=== PATIENT | male | born 1970 | race Caucasian/White ===

== ENCOUNTER 2021-11-18 13:00 | Inpatient (IN) ==
[2021-11-18] MEDS ORDERED: *HR* HYDROmorphone (PF) 1 MG/ML SYRINGE IVP ONE (14:48)
[2021-11-18] MEDS ORDERED: 0.9 % Sodium Chloride 1,000 ML IVC ONE (14:48)
[2021-11-18 15:56] LABS: Basophils # 0.1 K/mcL (0.0-0.2); Basophils % 0.5 %; Eosinophils # 0.6 K/mcL (0.0-0.6); Eosinophils % 5.8 %; Hematocrit 26.2 % (37.5-50.1); Hemoglobin 8.1 g/dL (12.9-16.9); Immature Granulocytes % 2.3 % (0-4); Lymphocytes % 9.3 %; Mean Corpuscular HGB Conc 30.9 g/dL (31.6-35.5); Mean Corpuscular Hemoglobin 25.4 pg (28.0-33.3); Mean Corpuscular Volume 82.1 fL (83.0-100.0); Mean Platelet Volume 10.2 fL (9.4-12.4); Monocytes # 1.1 K/mcL (0.0-1.3); Neutrophils # 7.5 K/mcL (1.6-8.9); Platelet Count 500 K/mcL (140-400); Red Blood Count 3.19 M/mcL (4.19-5.50); Red Cell Distribution Width 13.6 % (11.5-14.5); Segmented Neutrophils % 72.1 %; White Blood Count 10.5 K/mcL (4.3-11.1)
[2021-11-18 16:05] LABS: INR 1.2; Prothrombin Time 13.2 Seconds (9.4-12.1)
[2021-11-18 16:07] LABS: Activated Partial Thrombo Time 32.1 Seconds (26.0-36.0)
[2021-11-18 16:18] LABS: Albumin 3.1 g/dL (3.5-5.7); Albumin/Globulin Ratio 0.8 (1.1-2.2); Bilirubin,Total 0.3 mg/dL (0.3-1.0); Calcium 8.9 mg/dL (8.6-10.3); Globulin 3.8 g/dL (2.4-3.5); Total Protein 6.9 g/dL (6.4-8.9)
[2021-11-18] MEDS ORDERED: Ondansetron 4 MG/2 ML VIAL IVP PRN (17:04)
[2021-11-18] MEDS ORDERED: Acetaminophen 325 MG TABLET PO PRN (17:04)
[2021-11-18] MEDS ORDERED: *HR* HYDROcodone/Acet 5/325 mg TABLET PO PRN (17:04)
[2021-11-18] MEDS ORDERED: Naloxone 0.4 MG/ML INJ IVP PRN (17:04)
[2021-11-18] MEDS ORDERED: *HR* OxyCODONE Immed Rel 5 MG TABLET PO PRN (17:04)
[2021-11-18] MEDS ORDERED: D5% in Water 1,000 ML IVC PRN (17:21)
[2021-11-18] MEDS ORDERED: *HR* Dextrose 50 % in Water (Syg) 50 ML SYRINGE IVP PRN (17:21)
[2021-11-18] MEDS ORDERED: Dextrose Gel 15 GM/37.5 ML TUBE PO PRN ×2 (17:21)
[2021-11-18] MEDS: 0.9 % Sodium Chloride 1,000 ML IVC SCH (17:51)
[2021-11-18 18:43] LABS: Adenovirus Not Detected (Not Detect); Bordetella Pertussis Not Detected (Not Detect); Chlamydophila pneumoniae Not Detected (Not Detect); Coronavirus 229E Not Detected (Not Detect); Coronavirus HKU1 Not Detected (Not Detect); Coronavirus NL63 Not Detected (Not Detect); Coronavirus OC43 DETECTED (Not Detect); Human Metapneumovirus Not Detected (Not Detect); Human Rhinovirus/Enterovirus Not Detected (Not Detect); Influenza A Subtype 2009 H1 Not Detected (Not Detect); Influenza B Not Detected (Not Detect); Mycoplasma pneumoniae Not Detected (Not Detect); Parainfluenza Virus 1 Not Detected (Not Detect); Parainfluenza Virus 2 Not Detected (Not Detect); Parainfluenza Virus 3 Not Detected (Not Detect); Parainfluenza Virus 4 Not Detected (Not Detect); Respiratory Syncytial Virus Not Detected (Not Detect); SARS-CoV-2 Not Detected (Not Detect)
[2021-11-18] MEDS: Insulin LISPRO 300 UNITS/3 ML VIAL SUBQ SCH (18:58)
[2021-11-18] MEDS ORDERED: Insulin DETEMIR 100 UNIT/ML X5UNITS SUBQ SCH (21:00)
[2021-11-19] MEDS: Insulin LISPRO 300 UNITS/3 ML VIAL SUBQ SCH ×4 (00:18→18:43)
[2021-11-19 08:05] LABS: Basophils # 0.1 K/mcL (0.0-0.2); Basophils % 0.7 %; Eosinophils # 0.7 K/mcL (0.0-0.6); Eosinophils % 7.1 %; Hematocrit 24.4 % (37.5-50.1); Hemoglobin 7.3 g/dL (12.9-16.9); Immature Granulocytes % 2.5 % (0-4); Lymphocytes # 1.4 K/mcL (0.6-4.6); Lymphocytes % 14.5 %; Mean Corpuscular HGB Conc 29.9 g/dL (31.6-35.5); Mean Corpuscular Volume 83.6 fL (83.0-100.0); Mean Platelet Volume 10.5 fL (9.4-12.4); Monocytes # 1.1 K/mcL (0.0-1.3); Monocytes % 10.9 %; Neutrophils # 6.4 K/mcL (1.6-8.9); Platelet Count 458 K/mcL (140-400); Red Blood Count 2.92 M/mcL (4.19-5.50); Segmented Neutrophils % 64.3 %
[2021-11-19 08:30] LABS: Calcium 8.5 mg/dL (8.6-10.3); Potassium 4.2 mEq/L (3.5-5.1)
[2021-11-19] MEDS: 0.9 % Sodium Chloride 1,000 ML IVC SCH (11:04)
[2021-11-19] MEDS ORDERED: Ondansetron 4 MG/2 ML VIAL IVP PRN ×3 (14:10→19:43)
[2021-11-19] MEDS ORDERED: *HR* OxyCODONE Immed Rel 5 MG TABLET PO PRN (14:10)
[2021-11-19] MEDS ORDERED: *HR* Succinylcholine 200 MG/10 ML VIAL IVP ONE (14:15)
[2021-11-19] MEDS ORDERED: Lidocaine HCL 4 ML Topical Solution (Laryng-O-Jet Kit Sterile Pak) TP ONE (14:15)
[2021-11-19] MEDS ORDERED: Ondansetron 4 MG/2 ML VIAL ONE (14:15)
[2021-11-19] MEDS ORDERED: Lidocaine -MPF 2% 5 ML VIAL ONE (14:15)
[2021-11-19] MEDS ORDERED: *HR* Propofol 200 MG/20 ML VIAL IVP ONE (14:16)
[2021-11-19] MEDS ORDERED: *HR* FentaNYL (PF) 100 MCG/2 ML VIAL ONE ×2 (14:16→16:34)
[2021-11-19] MEDS ORDERED: *HR* Metoprolol 5 MG/5 ML VIAL IVP ONE (15:01)
[2021-11-19] MEDS ORDERED: Clindamycin 900 MG/50 ML 900 MG/50 ML IV.SOLN IVPB ONE (15:14)
[2021-11-19] MEDS ORDERED: *HR* Phenylephrine 10 MG/ML VIAL ONE (15:49)
[2021-11-19] MEDS ORDERED: Vancomycin 1,000 MG VIAL ONE (15:57)
[2021-11-19] MEDS ORDERED: Acetaminophen IV 1,000 MG/100 ML BAG IVPB ONE (16:16)
[2021-11-19] MEDS: *HR* HYDROmorphone PF 0.5 MG/0.5 ML SYRINGE IVP PRN ×3 (18:47→19:01)
[2021-11-19] MEDS ORDERED: D5% in Water 1,000 ML IVC PRN (19:43)
[2021-11-19] MEDS ORDERED: Dextrose Gel 15 GM/37.5 ML TUBE PO PRN ×2 (19:43)
[2021-11-19] MEDS ORDERED: *HR* Dextrose 50 % in Water (Syg) 50 ML SYRINGE IVP PRN (19:43)
[2021-11-19] MEDS ORDERED: Naloxone 0.4 MG/ML INJ IVP PRN (19:43)
[2021-11-19] MEDS ORDERED: Acetaminophen 325 MG TABLET PO PRN (19:43)
[2021-11-19] MEDS ORDERED: Insulin DETEMIR 100 UNIT/ML X5UNITS SUBQ SCH (21:00)
[2021-11-19] MEDS: *HR* OxyCODONE Immed Rel 5 MG TABLET PO PRN (21:01)
[2021-11-20] MEDS ORDERED: Clindamycin 900 MG/50 ML 900 MG/50 ML IV.SOLN IVPB SCH
[2021-11-20] MEDS ORDERED: *HR* Pioglitazone 45 MG TABLET PO ONE (00:23)
[2021-11-20] MEDS ORDERED: Colchicine 0.6 MG TABLET PO SCH (00:30)
[2021-11-20] MEDS: Clindamycin 900 MG/50 ML 900 MG/50 ML IV.SOLN IVPB SCH ×3 (01:01→15:39)
[2021-11-20] MEDS: Insulin LISPRO 300 UNITS/3 ML VIAL SUBQ SCH ×4 (01:04→17:57)
[2021-11-20] MEDS: Lisinopril-HCTZ 20-12.5mg TABLET PO SCH ×2 (01:05→07:39)
[2021-11-20] MEDS: *HR* HYDROcodone/Acet 5/325 mg TABLET PO PRN ×2 (01:05→07:37)
[2021-11-20] MEDS: *HR* OxyCODONE Immed Rel 5 MG TABLET PO PRN (03:44)
[2021-11-20] MEDS ORDERED: Metoprolol XL (24 HR) Succ 50 MG TAB.ER.24H PO SCH (09:00)
[2021-11-20 10:00] LABS: Hematocrit 23.1 % (37.5-50.1); Hemoglobin 7.1 g/dL (12.9-16.9); Mean Corpuscular HGB Conc 30.7 g/dL (31.6-35.5); Mean Corpuscular Hemoglobin 25.8 pg (28.0-33.3); Mean Platelet Volume 10.3 fL (9.4-12.4); Platelet Count 492 K/mcL (140-400); Red Blood Count 2.75 M/mcL (4.19-5.50); White Blood Count 12.6 K/mcL (4.3-11.1)
[2021-11-20 10:13] LABS: Calcium 8.3 mg/dL (8.6-10.3); Potassium 4.6 mEq/L (3.5-5.1)
[2021-11-20] MEDS: *HR* OxyCODONE/APAP 5/325 TABLET PO PRN ×3 (10:56→20:31)
[2021-11-20] MEDS: Insulin DETEMIR 100 UNIT/ML X5UNITS SUBQ SCH (20:16)
[2021-11-20] MEDS: Metoprolol XL (24 HR) Succ 50 MG TAB.ER.24H PO SCH (20:17)
[2021-11-20] MEDS: Colchicine 0.6 MG TABLET PO SCH (20:17)
[2021-11-20] MEDS ORDERED: Lisinopril-HCTZ 20-12.5mg TABLET PO SCH (21:00)
[2021-11-21] MEDS: Clindamycin 900 MG/50 ML 900 MG/50 ML IV.SOLN IVPB SCH ×4 (00:04→23:24)
[2021-11-21] MEDS: Insulin LISPRO 300 UNITS/3 ML VIAL SUBQ SCH ×5 (00:05→21:33)
[2021-11-21 05:15] LABS: Hematocrit 22.1 % (37.5-50.1); Hemoglobin 6.7 g/dL (12.9-16.9); Mean Corpuscular HGB Conc 30.3 g/dL (31.6-35.5); Mean Corpuscular Hemoglobin 25.5 pg (28.0-33.3); Mean Platelet Volume 10.3 fL (9.4-12.4); Platelet Count 453 K/mcL (140-400); Red Blood Count 2.63 M/mcL (4.19-5.50); Red Cell Distribution Width 14.2 % (11.5-14.5); White Blood Count 13.9 K/mcL (4.3-11.1)
[2021-11-21 05:32] LABS: Calcium 8.1 mg/dL (8.6-10.3); Potassium 4.7 mEq/L (3.5-5.1)
[2021-11-21] MEDS: *HR* OxyCODONE/APAP 5/325 TABLET PO PRN ×3 (08:15→19:49)
[2021-11-21] MEDS ORDERED: 0.9 % Sodium Chloride 250 ML ONE (10:01)
[2021-11-21 14:56] LABS: Hematocrit 23.6 % (37.5-50.1); Hemoglobin 7.2 g/dL (12.9-16.9)
[2021-11-21] MEDS: Metoprolol XL (24 HR) Succ 50 MG TAB.ER.24H PO SCH (21:41)
[2021-11-21] MEDS: Insulin DETEMIR 100 UNIT/ML X5UNITS SUBQ SCH (21:41)
[2021-11-21] MEDS: Colchicine 0.6 MG TABLET PO SCH (21:41)
[2021-11-22] MEDS: Insulin LISPRO 300 UNITS/3 ML VIAL SUBQ SCH ×4 (07:59→21:46)
[2021-11-22] MEDS: Clindamycin 900 MG/50 ML 900 MG/50 ML IV.SOLN IVPB SCH ×3 (08:09→23:44)
[2021-11-22] MEDS: *HR* OxyCODONE/APAP 5/325 TABLET PO PRN ×3 (10:32→21:54)
[2021-11-22 11:37] LABS: Hematocrit 24.3 % (37.5-50.1); Hemoglobin 7.4 g/dL (12.9-16.9); Mean Corpuscular HGB Conc 30.5 g/dL (31.6-35.5); Mean Corpuscular Hemoglobin 25.4 pg (28.0-33.3); Mean Corpuscular Volume 83.5 fL (83.0-100.0); Mean Platelet Volume 10.3 fL (9.4-12.4); Platelet Count 456 K/mcL (140-400); Red Blood Count 2.91 M/mcL (4.19-5.50); Red Cell Distribution Width 14.4 % (11.5-14.5); White Blood Count 12.8 K/mcL (4.3-11.1)
[2021-11-22 11:56] LABS: Calcium 8.4 mg/dL (8.6-10.3); Potassium 4.8 mEq/L (3.5-5.1)
[2021-11-22] MEDS: Colchicine 0.6 MG TABLET PO SCH (21:54)
[2021-11-22] MEDS: Insulin DETEMIR 100 UNIT/ML X5UNITS SUBQ SCH (21:54)
[2021-11-22] MEDS: Metoprolol XL (24 HR) Succ 50 MG TAB.ER.24H PO SCH (21:54)
[2021-11-23] MEDS ORDERED: *HR* Heparin 5,000 UNIT/ML VIAL SQ ONE (08:09)
[2021-11-23] MEDS: Insulin LISPRO 300 UNITS/3 ML VIAL SUBQ SCH ×4 (08:38→21:17)
[2021-11-23] MEDS: Clindamycin 900 MG/50 ML 900 MG/50 ML IV.SOLN IVPB SCH (08:41)
[2021-11-23 10:16] LABS: Hematocrit 25.1 % (37.5-50.1); Hemoglobin 7.8 g/dL (12.9-16.9); Lymphocytes # 1.4 K/mcL (0.6-4.6); Mean Corpuscular HGB Conc 31.1 g/dL (31.6-35.5); Mean Corpuscular Hemoglobin 25.7 pg (28.0-33.3); Mean Corpuscular Volume 82.6 fL (83.0-100.0); Platelet Count 534 K/mcL (140-400); Red Blood Count 3.04 M/mcL (4.19-5.50); Red Cell Distribution Width 14.6 % (11.5-14.5); White Blood Count 14.1 K/mcL (4.3-11.1)
[2021-11-23] MEDS: *HR* OxyCODONE/APAP 5/325 TABLET PO PRN ×3 (12:29→21:18)
[2021-11-23 12:35] LABS: Basophils # 0.3 K/mcL (0.0-0.2); Eosinophils # 0.3 K/mcL (0.0-0.6); Monocytes # 0.6 K/mcL (0.0-1.3); Neutrophils # 10.4 K/mcL (1.6-8.9)
[2021-11-23 12:36] LABS: Platelet Estimate Increased (Normal); Toxic Granulation Present (Not Present)
[2021-11-23 12:59] LABS: Calcium 8.6 mg/dL (8.6-10.3); Potassium 5.4 mEq/L (3.5-5.1)
[2021-11-23] MEDS: *HR* Rivaroxaban 10 MG TABLET PO SCH (16:52)
[2021-11-23] MEDS: Colchicine 0.6 MG TABLET PO SCH (21:15)
[2021-11-23] MEDS: Metoprolol XL (24 HR) Succ 50 MG TAB.ER.24H PO SCH (21:15)
[2021-11-23] MEDS: Insulin DETEMIR 100 UNIT/ML X5UNITS SUBQ SCH (21:16)
[2021-11-24] MEDS: *HR* OxyCODONE/APAP 5/325 TABLET PO PRN ×4 (02:46→22:17)
[2021-11-24 05:12] LABS: Basophils # 0.1 K/mcL (0.0-0.2); Eosinophils # 0.7 K/mcL (0.0-0.6); Eosinophils % 5.5 %; Hematocrit 23.9 % (37.5-50.1); Hemoglobin 7.5 g/dL (12.9-16.9); Immature Granulocytes % 8.5 % (0-4); Lymphocytes # 1.9 K/mcL (0.6-4.6); Lymphocytes % 13.8 %; Mean Corpuscular HGB Conc 31.4 g/dL (31.6-35.5); Mean Corpuscular Hemoglobin 25.3 pg (28.0-33.3); Mean Corpuscular Volume 80.5 fL (83.0-100.0); Mean Platelet Volume 10.1 fL (9.4-12.4); Monocytes # 1.1 K/mcL (0.0-1.3); Monocytes % 8.1 %; Platelet Count 526 K/mcL (140-400); Red Blood Count 2.97 M/mcL (4.19-5.50); Red Cell Distribution Width 14.8 % (11.5-14.5); Segmented Neutrophils % 63.1 %; White Blood Count 13.4 K/mcL (4.3-11.1)
[2021-11-24 05:24] LABS: Calcium 8.6 mg/dL (8.6-10.3)
[2021-11-24 05:28] LABS: Neutrophils # 8.5 K/mcL (1.6-8.9)
[2021-11-24 06:06] LABS: Platelet Estimate Increased (Normal)
[2021-11-24] MEDS: Insulin LISPRO 300 UNITS/3 ML VIAL SUBQ SCH ×4 (07:49→20:39)
[2021-11-24 13:44] LABS: Iron 16 mcg/dL (65-175)
[2021-11-24 14:02] LABS: Ferritin 566 ng/mL (20-250)
[2021-11-24] MEDS: *HR* Rivaroxaban 10 MG TABLET PO SCH (15:48)
[2021-11-24] MEDS: Gabapentin 300 MG CAPSULE PO SCH ×2 (15:48→20:36)
[2021-11-24] MEDS: Colchicine 0.6 MG TABLET PO SCH (20:36)
[2021-11-24] MEDS: Metoprolol XL (24 HR) Succ 50 MG TAB.ER.24H PO SCH (20:36)
[2021-11-24] MEDS: Doxycycline 100 MG CAPSULE PO SCH (20:36)
[2021-11-24] MEDS: Insulin DETEMIR 100 UNIT/ML X5UNITS SUBQ SCH (20:41)
[2021-11-25 05:31] LABS: Hematocrit 24.8 % (37.5-50.1); Hemoglobin 7.6 g/dL (12.9-16.9); Mean Corpuscular HGB Conc 30.6 g/dL (31.6-35.5); Mean Corpuscular Hemoglobin 25.8 pg (28.0-33.3); Mean Corpuscular Volume 84.1 fL (83.0-100.0); Mean Platelet Volume 9.8 fL (9.4-12.4); Platelet Count 581 K/mcL (140-400); Red Blood Count 2.95 M/mcL (4.19-5.50); Red Cell Distribution Width 14.6 % (11.5-14.5); White Blood Count 14.4 K/mcL (4.3-11.1)
[2021-11-25 05:47] LABS: Calcium 8.6 mg/dL (8.6-10.3); Potassium 5.2 mEq/L (3.5-5.1)
[2021-11-25] MEDS: Doxycycline 100 MG CAPSULE PO SCH ×2 (08:45→22:20)
[2021-11-25] MEDS: Gabapentin 300 MG CAPSULE PO SCH ×3 (08:45→22:19)
[2021-11-25] MEDS: Insulin LISPRO 300 UNITS/3 ML VIAL SUBQ SCH ×4 (08:45→22:21)
[2021-11-25] MEDS: *HR* OxyCODONE/APAP 5/325 TABLET PO PRN ×3 (11:03→22:19)
[2021-11-25] MEDS: *HR* Rivaroxaban 10 MG TABLET PO SCH (17:39)
[2021-11-25] MEDS: Colchicine 0.6 MG TABLET PO SCH (22:19)
[2021-11-25] MEDS: Metoprolol XL (24 HR) Succ 50 MG TAB.ER.24H PO SCH (22:19)
[2021-11-25] MEDS: Insulin DETEMIR 100 UNIT/ML X5UNITS SUBQ SCH (22:20)
[2021-11-26 03:09] LABS: Hematocrit 25.6 % (37.5-50.1); Hemoglobin 7.7 g/dL (12.9-16.9); Mean Corpuscular HGB Conc 30.1 g/dL (31.6-35.5); Mean Corpuscular Hemoglobin 25.4 pg (28.0-33.3); Mean Corpuscular Volume 84.5 fL (83.0-100.0); Mean Platelet Volume 9.7 fL (9.4-12.4); Platelet Count 597 K/mcL (140-400); Red Blood Count 3.03 M/mcL (4.19-5.50); Red Cell Distribution Width 14.6 % (11.5-14.5); White Blood Count 15.4 K/mcL (4.3-11.1)
[2021-11-26 03:26] LABS: Calcium 8.8 mg/dL (8.6-10.3); Potassium 5.5 mEq/L (3.5-5.1)
[2021-11-26] MEDS: Gabapentin 300 MG CAPSULE PO SCH ×3 (08:28→20:51)
[2021-11-26] MEDS: Doxycycline 100 MG CAPSULE PO SCH ×2 (08:28→20:51)
[2021-11-26] MEDS: Insulin LISPRO 300 UNITS/3 ML VIAL SUBQ SCH ×4 (08:30→20:55)
[2021-11-26] MEDS: *HR* OxyCODONE/APAP 5/325 TABLET PO PRN ×3 (08:42→20:51)
[2021-11-26 10:34] LABS: % Iron Saturation 7 % (20-55); Transferrin 164 mg/dL (203-362)
[2021-11-26] MEDS: *HR* Rivaroxaban 10 MG TABLET PO SCH (18:11)
[2021-11-26] MEDS: Colchicine 0.6 MG TABLET PO SCH (20:51)
[2021-11-26] MEDS: Metoprolol XL (24 HR) Succ 50 MG TAB.ER.24H PO SCH (20:51)
[2021-11-26] MEDS: Insulin DETEMIR 100 UNIT/ML X5UNITS SUBQ SCH (21:07)
[2021-11-27 07:30] LABS: Hematocrit 26.5 % (37.5-50.1); Hemoglobin 8.2 g/dL (12.9-16.9); Mean Corpuscular HGB Conc 30.9 g/dL (31.6-35.5); Mean Corpuscular Volume 84.1 fL (83.0-100.0); Mean Platelet Volume 9.8 fL (9.4-12.4); Platelet Count 634 K/mcL (140-400); Red Blood Count 3.15 M/mcL (4.19-5.50); Red Cell Distribution Width 14.6 % (11.5-14.5); White Blood Count 15.6 K/mcL (4.3-11.1)
[2021-11-27 07:52] LABS: Calcium 8.8 mg/dL (8.6-10.3); Potassium 5.5 mEq/L (3.5-5.1)
[2021-11-27] MEDS: Gabapentin 300 MG CAPSULE PO SCH ×3 (08:10→21:19)
[2021-11-27] MEDS: Doxycycline 100 MG CAPSULE PO SCH ×2 (08:10→21:20)
[2021-11-27] MEDS: Insulin LISPRO 300 UNITS/3 ML VIAL SUBQ SCH ×4 (08:11→21:20)
[2021-11-27] MEDS: *HR* OxyCODONE/APAP 5/325 TABLET PO PRN ×4 (09:06→23:15)
[2021-11-27] MEDS: Metoprolol XL (24 HR) Succ 50 MG TAB.ER.24H PO SCH (14:45)
[2021-11-27] MEDS: *HR* Rivaroxaban 10 MG TABLET PO SCH (17:16)
[2021-11-27] MEDS: Insulin DETEMIR 100 UNIT/ML X5UNITS SUBQ SCH (19:20)
[2021-11-27] MEDS: Colchicine 0.6 MG TABLET PO SCH (21:20)
[2021-11-28 04:38] LABS: Hematocrit 26.4 % (37.5-50.1); Hemoglobin 7.7 g/dL (12.9-16.9); Mean Corpuscular HGB Conc 29.2 g/dL (31.6-35.5); Mean Corpuscular Hemoglobin 24.8 pg (28.0-33.3); Mean Corpuscular Volume 84.9 fL (83.0-100.0); Mean Platelet Volume 9.8 fL (9.4-12.4); Platelet Count 574 K/mcL (140-400); Red Blood Count 3.11 M/mcL (4.19-5.50); Red Cell Distribution Width 14.7 % (11.5-14.5); White Blood Count 15.5 K/mcL (4.3-11.1)
[2021-11-28 04:48] LABS: Calcium 8.9 mg/dL (8.6-10.3); Potassium 5.2 mEq/L (3.5-5.1)
[2021-11-28] MEDS: Gabapentin 300 MG CAPSULE PO SCH ×3 (08:17→20:08)
[2021-11-28] MEDS: *HR* OxyCODONE/APAP 5/325 TABLET PO PRN ×3 (08:18→20:08)
[2021-11-28] MEDS: Insulin LISPRO 300 UNITS/3 ML VIAL SUBQ SCH ×4 (08:18→20:09)
[2021-11-28] MEDS: Metoprolol XL (24 HR) Succ 50 MG TAB.ER.24H PO SCH (08:18)
[2021-11-28] MEDS: Doxycycline 100 MG CAPSULE PO SCH ×2 (08:18→20:08)
[2021-11-28] MEDS: *HR* Rivaroxaban 10 MG TABLET PO SCH (16:43)
[2021-11-28] MEDS: Colchicine 0.6 MG TABLET PO SCH (20:08)
[2021-11-28] MEDS: Insulin DETEMIR 100 UNIT/ML X5UNITS SUBQ SCH (20:59)
[2021-11-29 06:40] LABS: Hematocrit 25.9 % (37.5-50.1); Hemoglobin 7.8 g/dL (12.9-16.9); Mean Corpuscular HGB Conc 30.1 g/dL (31.6-35.5); Mean Corpuscular Hemoglobin 25.5 pg (28.0-33.3); Mean Corpuscular Volume 84.6 fL (83.0-100.0); Mean Platelet Volume 9.7 fL (9.4-12.4); Platelet Count 594 K/mcL (140-400); Red Blood Count 3.06 M/mcL (4.19-5.50); Red Cell Distribution Width 14.9 % (11.5-14.5); White Blood Count 16.9 K/mcL (4.3-11.1)
[2021-11-29 06:59] LABS: Potassium 5.2 mEq/L (3.5-5.1)
[2021-11-29] MEDS: Gabapentin 300 MG CAPSULE PO SCH ×3 (07:35→20:43)
[2021-11-29] MEDS: Metoprolol XL (24 HR) Succ 50 MG TAB.ER.24H PO SCH (07:35)
[2021-11-29] MEDS: Doxycycline 100 MG CAPSULE PO SCH ×2 (07:35→20:43)
[2021-11-29] MEDS: *HR* OxyCODONE/APAP 5/325 TABLET PO PRN ×3 (07:54→20:46)
[2021-11-29] MEDS: Insulin LISPRO 300 UNITS/3 ML VIAL SUBQ SCH ×4 (07:55→20:22)
[2021-11-29] MEDS: *HR* Rivaroxaban 10 MG TABLET PO SCH (17:10)
[2021-11-29] MEDS: Colchicine 0.6 MG TABLET PO SCH (20:43)
[2021-11-29] MEDS: Insulin DETEMIR 100 UNIT/ML X5UNITS SUBQ SCH (20:46)
[2021-11-30 03:25] LABS: Hematocrit 25.5 % (37.5-50.1); Hemoglobin 7.7 g/dL (12.9-16.9); Mean Corpuscular HGB Conc 30.2 g/dL (31.6-35.5); Mean Corpuscular Hemoglobin 25.6 pg (28.0-33.3); Mean Corpuscular Volume 84.7 fL (83.0-100.0); Platelet Count 552 K/mcL (140-400); Red Blood Count 3.01 M/mcL (4.19-5.50); Red Cell Distribution Width 14.8 % (11.5-14.5); White Blood Count 14.6 K/mcL (4.3-11.1)
[2021-11-30 03:45] LABS: Calcium 8.8 mg/dL (8.6-10.3); Potassium 5.3 mEq/L (3.5-5.1)
[2021-11-30] MEDS ORDERED: 0.9 % Sodium Chloride 500 ML IVC ONE (08:20)
[2021-11-30] MEDS: Gabapentin 300 MG CAPSULE PO SCH ×3 (09:05→21:39)
[2021-11-30] MEDS: Doxycycline 100 MG CAPSULE PO SCH ×2 (09:05→21:38)
[2021-11-30] MEDS: Metoprolol XL (24 HR) Succ 50 MG TAB.ER.24H PO SCH (09:05)
[2021-11-30] MEDS: Insulin LISPRO 300 UNITS/3 ML VIAL SUBQ SCH ×4 (09:09→21:37)
[2021-11-30] MEDS: *HR* OxyCODONE/APAP 5/325 TABLET PO PRN ×3 (09:12→21:40)
[2021-11-30] MEDS: *HR* Rivaroxaban 10 MG TABLET PO SCH (15:54)
[2021-11-30] MEDS: Colchicine 0.6 MG TABLET PO SCH (21:38)
[2021-11-30] MEDS: Insulin DETEMIR 100 UNIT/ML X5UNITS SUBQ SCH (21:38)
[2021-12-01 05:07] LABS: Hematocrit 26.4 % (37.5-50.1); Hemoglobin 7.7 g/dL (12.9-16.9); Mean Corpuscular HGB Conc 29.2 g/dL (31.6-35.5); Mean Corpuscular Hemoglobin 24.9 pg (28.0-33.3); Mean Corpuscular Volume 85.4 fL (83.0-100.0); Mean Platelet Volume 10.2 fL (9.4-12.4); Platelet Count 524 K/mcL (140-400); Red Blood Count 3.09 M/mcL (4.19-5.50); Red Cell Distribution Width 15.1 % (11.5-14.5); White Blood Count 13.3 K/mcL (4.3-11.1)
[2021-12-01 05:20] LABS: Calcium 9.2 mg/dL (8.6-10.3); Potassium 5.5 mEq/L (3.5-5.1)
[2021-12-01] MEDS: Gabapentin 300 MG CAPSULE PO SCH ×3 (08:23→19:45)
[2021-12-01] MEDS: Metoprolol XL (24 HR) Succ 50 MG TAB.ER.24H PO SCH (08:23)
[2021-12-01] MEDS: Doxycycline 100 MG CAPSULE PO SCH ×2 (08:23→19:45)
[2021-12-01] MEDS: Insulin LISPRO 300 UNITS/3 ML VIAL SUBQ SCH ×4 (08:24→19:46)
[2021-12-01] MEDS: *HR* OxyCODONE/APAP 5/325 TABLET PO PRN ×3 (08:58→19:45)
[2021-12-01] MEDS: *HR* Rivaroxaban 10 MG TABLET PO SCH (17:14)
[2021-12-01] MEDS: Insulin DETEMIR 100 UNIT/ML X5UNITS SUBQ SCH (19:45)
[2021-12-01] MEDS: Colchicine 0.6 MG TABLET PO SCH (19:45)
[2021-12-02] MEDS: *HR* OxyCODONE/APAP 5/325 TABLET PO PRN ×2 (00:16→10:21)
[2021-12-02 04:43] LABS: Hemoglobin 7.7 g/dL (12.9-16.9); Mean Corpuscular HGB Conc 29.6 g/dL (31.6-35.5); Mean Corpuscular Hemoglobin 24.9 pg (28.0-33.3); Mean Corpuscular Volume 84.1 fL (83.0-100.0); Mean Platelet Volume 10.2 fL (9.4-12.4); Platelet Count 519 K/mcL (140-400); Red Blood Count 3.09 M/mcL (4.19-5.50); Red Cell Distribution Width 15.3 % (11.5-14.5); White Blood Count 12.4 K/mcL (4.3-11.1)
[2021-12-02 05:06] LABS: Calcium 9.1 mg/dL (8.6-10.3); Potassium 5.2 mEq/L (3.5-5.1)
[2021-12-02 05:33] LABS: Lymphocytes # 2.5 K/mcL (0.6-4.6); Monocytes # 0.5 K/mcL (0.0-1.3); Neutrophils # 8.9 K/mcL (1.6-8.9); Poikilocytosis 1+ (Not Present)
[2021-12-02] MEDS: Insulin LISPRO 300 UNITS/3 ML VIAL SUBQ SCH ×4 (08:57→21:45)
[2021-12-02] MEDS: Doxycycline 100 MG CAPSULE PO SCH ×2 (08:58→17:15)
[2021-12-02] MEDS: Gabapentin 300 MG CAPSULE PO SCH ×3 (08:58→21:45)
[2021-12-02] MEDS: Metoprolol XL (24 HR) Succ 50 MG TAB.ER.24H PO SCH (08:59)
[2021-12-02] MEDS: *HR* Rivaroxaban 10 MG TABLET PO SCH (17:14)
[2021-12-02 17:37] LABS: Uric Acid 9.4 mg/dL (2.3-7.6)
[2021-12-02] MEDS: *HR* OxyCODONE/APAP 10/325 TABLET PO PRN ×2 (17:46→23:42)
[2021-12-02 17:48] LABS: Complement C3 233 mg/dL (87-200)
[2021-12-02 17:50] LABS: Rheumatoid Factor < 10 IU/mL (Less than 14); Vitamin B12 302 pg/mL (250-1100)
[2021-12-02 18:14] LABS: Vitamin D 25 Hydroxy 31 ng/mL (30-80)
[2021-12-02 19:58] LABS: Bilirubin,Urine Negative (Negative); Blood,Urine Negative (Negative); Clarity,Urine Clear (Clear); Color,Urine Colorless (Yellow); Glucose,Urine (UA) Normal (Normal); Ketones,Urine Negative (Negative); Leukocyte Esterase,Urine Negative (Negative); Nitrite,Urine Negative (Negative); Protein,Urine Trace mg/dL (Neg-Trace); Specific Gravity,Urine 1.007 (1.010-1.025); Urobilinogen,Urine Normal (Normal)
[2021-12-02] MEDS: Colchicine 0.6 MG TABLET PO SCH (21:40)
[2021-12-02] MEDS: Insulin DETEMIR 100 UNIT/ML X5UNITS SUBQ SCH (21:45)
[2021-12-03 05:26] LABS: Calcium 9.4 mg/dL (8.6-10.3); Potassium 5.3 mEq/L (3.5-5.1)
[2021-12-03 05:31] LABS: Basophils # 0.1 K/mcL (0.0-0.2); Basophils % 0.8 %; Eosinophils # 0.6 K/mcL (0.0-0.6); Eosinophils % 5.3 %; Hemoglobin 8.1 g/dL (12.9-16.9); Immature Granulocytes % 4.7 % (0-4); Lymphocytes # 2.2 K/mcL (0.6-4.6); Lymphocytes % 20.4 %; Mean Corpuscular Hemoglobin 25.7 pg (28.0-33.3); Mean Corpuscular Volume 85.7 fL (83.0-100.0); Mean Platelet Volume 10.2 fL (9.4-12.4); Monocytes # 0.8 K/mcL (0.0-1.3); Monocytes % 7.4 %; Neutrophils # 6.5 K/mcL (1.6-8.9); Platelet Count 501 K/mcL (140-400); Red Blood Count 3.15 M/mcL (4.19-5.50); Red Cell Distribution Width 15.2 % (11.5-14.5); Segmented Neutrophils % 61.4 %; White Blood Count 10.6 K/mcL (4.3-11.1)
[2021-12-03] MEDS: Doxycycline 100 MG CAPSULE PO SCH ×2 (06:16→18:28)
[2021-12-03] MEDS: *HR* OxyCODONE/APAP 10/325 TABLET PO PRN ×3 (06:16→18:28)
[2021-12-03] MEDS: Gabapentin 300 MG CAPSULE PO SCH ×3 (09:45→19:40)
[2021-12-03] MEDS: Metoprolol XL (24 HR) Succ 50 MG TAB.ER.24H PO SCH (09:45)
[2021-12-03] MEDS: Insulin LISPRO 300 UNITS/3 ML VIAL SUBQ SCH ×4 (09:45→19:41)
[2021-12-03] MEDS: *HR* Rivaroxaban 10 MG TABLET PO SCH (15:31)
[2021-12-03] MEDS ORDERED: SUMAtriptan succinate 25 MG TABLET PO ONE (18:35)
[2021-12-03] MEDS: Insulin DETEMIR 100 UNIT/ML X5UNITS SUBQ SCH (19:40)
[2021-12-03] MEDS: Colchicine 0.6 MG TABLET PO SCH (19:40)
[2021-12-04] MEDS: *HR* OxyCODONE/APAP 10/325 TABLET PO PRN ×4 (00:23→19:28)
[2021-12-04 05:00] LABS: Calcium 9.4 mg/dL (8.6-10.3); Potassium 5.7 mEq/L (3.5-5.1)
[2021-12-04] MEDS: Doxycycline 100 MG CAPSULE PO SCH ×2 (05:52→17:43)
[2021-12-04] MEDS ORDERED: Calcium Gluconate 1gm/50mL 1 GM/50 ML BAG IVPB ONE (08:15)
[2021-12-04] MEDS: Gabapentin 300 MG CAPSULE PO SCH ×3 (08:31→19:28)
[2021-12-04] MEDS: Metoprolol XL (24 HR) Succ 50 MG TAB.ER.24H PO SCH (08:31)
[2021-12-04] MEDS: Insulin LISPRO 300 UNITS/3 ML VIAL SUBQ SCH ×4 (08:31→19:33)
[2021-12-04 16:35] LABS: Calcium 9.7 mg/dL (8.6-10.3); Potassium 5.3 mEq/L (3.5-5.1)
[2021-12-04] MEDS: *HR* Rivaroxaban 10 MG TABLET PO SCH (17:43)
[2021-12-04] MEDS: Colchicine 0.6 MG TABLET PO SCH (19:28)
[2021-12-04] MEDS: Insulin DETEMIR 100 UNIT/ML X5UNITS SUBQ SCH (19:29)
[2021-12-05] MEDS: *HR* OxyCODONE/APAP 10/325 TABLET PO PRN ×4 (01:26→21:57)
[2021-12-05] MEDS: Doxycycline 100 MG CAPSULE PO SCH ×2 (06:13→17:07)
[2021-12-05] MEDS: Metoprolol XL (24 HR) Succ 50 MG TAB.ER.24H PO SCH (08:41)
[2021-12-05] MEDS: Gabapentin 300 MG CAPSULE PO SCH ×3 (08:41→20:07)
[2021-12-05] MEDS: Insulin LISPRO 300 UNITS/3 ML VIAL SUBQ SCH ×4 (08:46→20:08)
[2021-12-05 10:00] LABS: Creatinine,Urine 47 mg/dL; Protein/Creatinine Ratio,Urine 0.55 mg/mg (0.00-0.20)
[2021-12-05 10:11] LABS: Microalbum/Creatinine Ratio,Ur 272 mcg/mg (Less than 30); Microalbumin,Urine 128 mg/L
[2021-12-05 10:34] LABS: Calcium 9.1 mg/dL (8.6-10.3); Potassium 4.7 mEq/L (3.5-5.1)
[2021-12-05 13:01] LABS: Lambda Qnt Free Light Chains 51.97 mg/L (5.71-26.30)
[2021-12-05 13:30] LABS: ANA IgG by ELISA NONE DETECTED (None Detected); Kappa Qnt Free Light Chains 66.48 mg/L (3.30-19.40)
[2021-12-05] MEDS: *HR* Rivaroxaban 10 MG TABLET PO SCH (17:07)
[2021-12-05] MEDS: Colchicine 0.6 MG TABLET PO SCH (20:08)
[2021-12-05] MEDS: Insulin DETEMIR 100 UNIT/ML X5UNITS SUBQ SCH (20:08)
[2021-12-06 02:32] LABS: Calcium 9.2 mg/dL (8.6-10.3); Potassium 4.6 mEq/L (3.5-5.1)
[2021-12-06] MEDS: *HR* OxyCODONE/APAP 10/325 TABLET PO PRN ×4 (04:42→23:35)
[2021-12-06] MEDS: Doxycycline 100 MG CAPSULE PO SCH ×2 (05:22→17:26)
[2021-12-06] MEDS: Metoprolol XL (24 HR) Succ 50 MG TAB.ER.24H PO SCH (09:16)
[2021-12-06] MEDS: Gabapentin 300 MG CAPSULE PO SCH ×3 (09:16→20:17)
[2021-12-06] MEDS: Insulin LISPRO 300 UNITS/3 ML VIAL SUBQ SCH ×4 (09:21→20:20)
[2021-12-06] MEDS: *HR* Rivaroxaban 10 MG TABLET PO SCH (17:26)
[2021-12-06] MEDS: Colchicine 0.6 MG TABLET PO SCH (20:17)
[2021-12-06] MEDS: Insulin DETEMIR 100 UNIT/ML X5UNITS SUBQ SCH (20:19)
[2021-12-07 03:36] VITALS: TEMP 97.6
[2021-12-07] MEDS: Doxycycline 100 MG CAPSULE PO SCH (05:48)
[2021-12-07] MEDS: *HR* OxyCODONE/APAP 10/325 TABLET PO PRN ×2 (05:48→12:34)
[2021-12-07] MEDS: Gabapentin 300 MG CAPSULE PO SCH (08:36)
[2021-12-07] MEDS: Metoprolol XL (24 HR) Succ 50 MG TAB.ER.24H PO SCH (08:40)
[2021-12-07] MEDS: Insulin LISPRO 300 UNITS/3 ML VIAL SUBQ SCH ×2 (08:41→12:37)
[2021-12-07 10:36] VITALS: BP 143/84; PULSE 81; O2SAT 98
[2021-12-09 04:27] LABS: Alpha 2 Globulin (PEP) 1.31 g/dL (0.48-1.05); Beta Globulin (PEP) 1.15 g/dL (0.48-1.10)
[2021-12-09 09:58] LABS: IFE Reflexed IFE Done; Immunoglobulin A 393 mg/dL (68-408); Immunoglobulin G 1111 mg/dL (768-1632); Immunoglobulin M 69 mg/dL (35-263)
== END 2021-12-07 16:22 | disposition home health service (06) | DRG 313 ==
LOC: EMEROOARM 13:00 → 4WAOSI 13:00 → SUATTDRO 18:37
PROVIDERS: ADMIT Internal Medicine; ATTEND Internal Medicine